=== PATIENT | male | born 1950 | race Caucasian/White ===

== ENCOUNTER 2017-07-26 06:50 | Outpatient (CLI) | payer MEDICARE, OTHER ==
--- NOTE | 2017-07-26 08:47 | ULT ---
ABDOMINAL ULTRASOUND: DATE: 07/26/17. PROVIDED CLINICAL HISTORY: Gallstones. FINDINGS: The visualized abdominal aorta and IVC appear normal. The pancreas is obscured. The liver demonstra chicho diffusely increased echogenicity compatible with fatty infiltration without evidence for mass or intrahepatic or intrahepatic biliary ductal dilatation. The liver appears enlarged measuring 20 cm i n craniocaudal dimension at the right hepatic lobe. The gallbladder demonstrates multiple shadowing mobile echogenic foci within its lumen compatible with gallstones. No wall thickening or pericholecy stic fluid evident. Sonographic Perry's sign is documented as negative. The common duct is upper l imits of normal measuring 6-7 mm. The kidneys demonstrate no hydronephrosis or mass. The spleen is not enlarged and demonstrates no focal abnormality. IMPRESSION: 1. Cholelithiasis without evidence for acute findings related to the gallbladder by ultrasound. 2. Fatty infiltration of the liver and hepatomegaly. POS: OFF
== END 2017-07-26 06:51 | disposition home or self-care (01) ==
LOC: SCSULT 06:50
PROVIDERS: ATTEND Internal Medicine
DX: R10.84 Generalized abdominal pain (principal); K76.0 Fatty (change of) liver, not elsewhere classified; K80.20 Calculus of gallbladder without cholecystitis without obstruction
CPT/HCPCS: 76700

== ENCOUNTER 2017-08-17 16:27 | Emergency (ER) | payer MEDICARE, OTHER ==
[2017-08-17 17:18] LABS: Anion Gap 15 mmol/L (10-20); BUN (Urea Nitrogen) 16 mg/dL (8.4-25.7); Calc. Creatinine Clearance 0 mL/min (70-130); Calcium 9.1 mg/dL (7.8-10.44); Carbon Dioxide 22 mmol/L (23-31); Chloride 102 mmol/L (98-107); Estimated GFR-MDRD 81; Glucose 135 mg/dL (80-115); Potassium 4.3 mmol/L (3.5-5.1); Sodium 135 mmol/L (136-145)
== END 2017-08-17 17:32 | disposition home or self-care (01) ==
LOC: SCSER 16:27
DX: R33.9 Retention of urine, unspecified (principal); K21.9 Gastro-esophageal reflux disease without esophagitis; E78.5 Hyperlipidemia, unspecified; Z79.899 Other long term (current) drug therapy
CPT/HCPCS: 36415; 51702; 80048

== ENCOUNTER 2020-08-06 08:04 | Outpatient (CLI) | payer MEDICARE, OTHER | END 2020-08-06 08:05 | disposition home or self-care (01) | LOC: TBSIIMAG 08:04 | PROVIDERS: ATTEND Urology | DX: R97.20 Elevated prostate specific antigen [PSA] (principal) | CPT/HCPCS: 72197; 82565 ==